=== PATIENT | male | born 1955 | race Caucasian/White ===

== ENCOUNTER 2020-08-27 14:51 | Emergency (ER) | payer BC, MEDICAID ==
--- NOTE | 2020-08-27 15:49 | EDM.PDOC ---
ED HPI GENERAL MEDICAL PROBLEM - General Chief Complaint: General Stated Complaint: CLOGGED PEG TUBE Time Seen by Provider: 08/27/20 15:27 Source of Information: Reports: Patient, Detention Records History Limitations: Reports: No Limitations - History of Present Illness INITIAL COMMENTS - FREE TEXT/NARRATIVE: Patient presents with a clogged PEG tube. It has been plugged since last evening. Supper meal last night wasn't able to be given and nothing today either. The NH tried water and coca-cola flush without success. He feels okay. No pain. No recent vomiting or diarrhea. Stools are normal and regular. - Related Data Allergies Allergy/AdvReac Type Severity Reaction Status Date / Time amlodipine besylate Allergy Swelling Verified 06/02/20 11:33 [From [facility]] banana Allergy Vomiting Verified 06/02/20 11:33 Latex, Natural Rubber Allergy Rash Verified 06/02/20 11:33 Home Meds: Home Meds Apixaban [Eliquis] 5 mg PO BID@0600,1800 05/05/18 [History] Cholecalciferol (Vitamin D3) [Vitamin D3] 1,000 units PO DAILY 05/05/18 [History] Escitalopram [Lexapro] 20 mg PO DAILY@0600 05/05/18 [History] Fenofibrate Nanocrystallized [Fenofibrate] 48 mg PO DAILY 05/05/18 [History] Metoprolol Succinate [Toprol XL 50mg] 50 mg PO DAILY 05/05/18 [History] Multivitamin [Multi-Day Vitamins] 1 each PO DAILY 05/05/18 [History] atorvaSTATin [Lipitor] 40 mg PO BEDTIME 05/05/18 [History] Polyethylene Glycol [Polyox Wsr-301] 1 tsp PO DAILY PRN 02/27/19 [History] Alendronate Sodium [Fosamax] 70 mg PO WEEKLY 03/06/19 [History] Magnesium Oxide 250 mg PO DAILY@0600 05/07/19 [History] Omeprazole 20 mg PO DAILY@0600 05/07/19 [History] Acetaminophen [Tylenol] 650 mg PO Q4H PRN tablet 05/08/19 [Rx] Albuterol [Proventil Neb Soln] 2.5 mg INH Q2H PRN neb 05/08/19 [Rx] Levothyroxine [Synthroid] 50 mcg PO BEDTIME #60 tab 05/08/19 [Rx] Cyclobenzaprine [Flexeril] 10 mg PO TID PRN 06/30/19 [History] Calcium Carb, Citrate/Vit D3 [Citracal + D ER] 2 tab PO BID 03/10/20 [History] DULoxetine [Cymbalta] 1 cap PO DAILY 03/10/20 [History] Ferrous Sulfate 1 tab PO Q2D 03/10/20 [History] Fluticasone Propion/Salmeterol [Advair Hfa 45-21 Mcg Inhaler] 2 puff INH BID 03/10/20 [History] Hydrocortisone [Hydrocortisone 1% Crm] 1 applic TOP ASDIRECTED PRN 03/10/20 [History] Losartan [Cozaar] 50 mg PO BID 03/10/20 [History] Mupirocin Oint [Bactroban Oint] 1 applic TOP TID 03/10/20 [History] Triamcinolone Acetonide [Kenalog 0.1% Crm] 0.5 gm TOP BID PRN 03/10/20 [History] guaiFENesin [Mucinex] 1 tab PO BID PRN 03/10/20 [History] valACYclovir [Valtrex] 1 tab PO TID 03/10/20 [History] Past Medical History HEENT History: Reports: None. Denies: Allergic Rhinitis, Cataract, Glaucoma, Hard of Hearing, Impaired Vision, Macular Degeneration, Otitis Media, Retinal Detachment Cardiovascular History: Reports: Afib, Arrhythmia, High Cholesterol, Hypertension. Denies: Aneurysm, Blood Clots/VTE/DVT, Bypass, CAD, Cardiomyopathy, Heart Failure, Heart Murmur, NV, Pacemaker, PTCA, PVD, Syncope Other Cardiovascular History: CT scan of the chest using calcium scoring technique negative for obstructive calcifications in March 2018 at [facility] although calcifications were noted. Recent Lexiscan on 06/24/19 was negative, however Positive Lexiscan Cardiolite evaluation on 10/14/17 showing mild coronary artery disease without ischemia. Note evidence of inferolateral cardiac ischemia by EKG in this facility on 06/30/2019, however normal subsequent heart catheterization on 07/02/2019 as below. Left atrial enlargement, mild aortic root enlargement, and diffuse mild valvular disease by echocardiogram in 2018 as below otherwise normal echocardiogram on 06/21/19 showed an ejection fraction of 55%. Atrial fibrillation diagnosed on 05/17/15 with subsequent unsuccessful permanent electrocardioversions/cardiac ablations? x2 at [facility] in the following months, last cardiac ablation on 01/25/16 previously successful to this point, however recurrent on 06/02/2020. Note current Eliquis therapy. Dyslipidemia currently under therapy; repolarization changes with previous incomplete right bundle branch block/incomplete left bundle branch, borderline carotid occlusive disease. Possible valvuloplasty by patient history. PACs, PVCs, runs, and sinus tachycardia by Holter monitor study on 07/02/17. Mild to moderate pericardial effusion by echocardiogram on 06/21/19. Respiratory History: Reports: Bronchitis, Recurrent, COPD, Intubation, Previous, Pulmonary Fibrosis, Sleep Apnea, Other (See Below). Denies: Asthma, Intubation, Difficult, PE, Pneumonia, Recurrent, Pneumothorax, TB Other Respiratory History: Patient has been compliant with his CPAP. Pulmonary restrictive lung disease, requires supplemental O2 currently at 2 L/min by nasal cannula. Gastrointestinal History: Reports: Cholelithiasis, Chronic Constipation, Fatty Liver, GERD, Hepatitis, PUD, Other (See Below). Denies: Celiac Disease, Colon Polyp, Diverticulosis, Fecal Incontinence, Gastritis, GI Bleed, Hiatal Hernia, Inflammatory Bowel Disease, Irritable Bowel Syndrome, Jaundice, Pancreatitis Other Gastrointestinal History: Cholelithiasis requiring surgery as below, postoperative LFTs elevation secondary to cholelithiasis in December 2000. Nonspecific enteropathy. Genitourinary History: Reports: BPH, Chronic Renal Insuffiency, Prostate Disorder, Renal Disease. Denies: Acute Renal Failure, Renal Calculus, STD, Urinary Incontinence, UTI, Recurrent Other Genitourinary History: Borderline grade 2 renal insufficiency Musculoskeletal History: Reports: Amputation, Arthritis, Back Pain, Chronic, Fracture, Gout, Osteoarthritis, Osteoporosis, Other (See Below). Denies: Neck Pain, Chronic, RA, SLE Other Musculoskeletal History: Right shoulder labrum abnormality by MRI of the shoulder as below. Hyperuricemia. Amputation of the distal phalanx of digits #2 and 3 of the right hand on 08/09/1994 secondary to trauma requiring surgery as below. Fracture of the fifth right toe in November 2000. Tuft fracture of digit #4 of the left hand on 09/27/1997. Fracture of the middle phalanx of digit #5 left hand in 1979. Tendinitis of the left knee and leg on 01/28/2016. Auger accident of the right forearm in about 1979 with no surgery required. Nondisplaced right hip/femoral neck fracture on 06/10/2017 diagnosed by subsequent MRI as below requiring pin placement. Plantar fasciitis. Chronic myalgia, chronic bilateral shoulder pain, and chronic right hip pain. Neurological History: Reports: Headaches, Chronic, Other (See Below). Denies: Alzheimers Disease, Cerebral Aneurysms, Concussion, CVA, Head Trauma, Migraines, MS, Neuropathy, Peripheral, Parkinson's, Seizure, TIA, Vertigo Other Neuro History: Chronic fatigue. Psychiatric History: Reports: Addiction, Anxiety, Depression. 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 Chronic insomnia. Endocrine/Metabolic History: Reports: Hypomagnesemia, Hypothyroidism, Obesity/BMI 30+, Osteopenia, Osteoporosis, Vitamin D Deficiency, Other (See Below). Denies: Diabetes, Type I, Diabetes, Type II, Diabetes Mellitus, Type 3c, Hypokalemia, Hypoparathyroidism, IDDM, Multinodular Thyroid Other Endocrine/Metabolic History: Hyponatremia. Hematologic History: Reports: Anemia, Blood Transfusion(s), Iron Deficiency. Denies: B12 Deficiency Other Hematologic History: Blood transfusion secondary to trauma in the with no transfusion reaction Immunologic History: Reports: None. Denies: AIDS, HIV, SLE Oncologic (Cancer) History: Reports: Basal Cell Carcinoma. Denies: Colon, Hodgkin's Lymphoma, Leukemia, Lymphoma, Malignant Melanoma, Non-Hodgkin's Lymphoma, Prostate, Squamous Cell Carcinoma Other Oncologic History: Excision of basal carcinoma from the scalp Dermatologic History: Reports: Other (See Below). Denies: Chronic Cellulitis, Eczema, Psoriasis, Venous Stasis Dermatitis Other Dermatologic History: Intermittent nonspecific dermatitis - Infectious Disease History Infectious Disease History: Reports: Chicken Pox, Measles, Mumps. Denies: C- Difficile, Meningitis, Mononucleosis, MRSA, Novel Coronavirus, Pertussis (Whooping Cough), Rheumatic Fever, Rubella, Scarlet Fever, Shingles, TB, VRE - Past Surgical History HEENT Surgical History: Reports: None, Oral Surgery, Other (See Below). Denies: Adenoidectomy, Cataract Surgery, Eye Surgery, Laser Surgery, LASIK, Myringotomy w Tube(s), Naso-Sinus Surgery, Tonsillectomy Cardiovascular Surgical History: Reports: Cardiac Ablation, Other (See Below). Denies: Varicose, Vascular Surgery Other Cardiovascular Surgeries/Procedures: Last cardiac ablation on 01/25/2016 at [facility] as above with previous unsuccessful ablations/cardioversions. Respiratory Surgical History: Reports: None. Denies: Thoracentesis GI Surgical History: Reports: Appendectomy, Cholecystectomy, Colonoscopy. Denies: EGD, Hernia, Abdominal, Hernia, Inguinal, Hernia Repair/Other, Polypectomy Other GI Surgeries/Procedures: Last colonoscopy was normal on 03/10/2020 with previous colonoscopy on 12/13/16. Abdominal catheter postoperative after laparoscopic cholecystectomy on 12/02/2000, appendectomy on 08/30/75. Male Surgical History: Reports: Circumcision. Denies: Renal Calculus, TURP- Transurethral Resection of Prostate, Vasectomy Endocrine Surgical History: Reports: None. Denies: Thyroid Biopsy Neurological Surgical History: Reports: None. Denies: C-Spine, Discectomy, Laminectomy, Lumbar Spine, Sacral Spine, Spinal Fusion, Thoracic Spine, Vertebroplasty Musculoskeletal Surgical History: Reports: Amputation, Arthroscopic Knee, Hip Replacement, ORIF, Shoulder Surgery. Denies: Arthroscopic Procedure, Carpal Tunnel, Ganglion Cyst, Joint Replacement Oncologic Surgical History: Reports: Other (See Below) Dermatological Surgical History: Reports: Skin Biopsy, Other (See Below) Other Dermatological Surgeries/Procedures: Excision of basal cell carcinoma as above with multiple previous skin excisions for benign disease. - Past Imaging History Past Imaging History: Reports: Angiography (Negative heart catheterization at [facility] on 07/02/2019 with ejection fraction not calculated at that time with previous heart catheterization at [facility] on 01/28/16.), Bone Scan (Bone scan including right hip on 01/02/18.), Cardiac Echo (Last echocardiogram on 06/21/19 with ejection fraction of 55%. Suboptimal echocardiogram on 10/01/17 with ejection fraction of 6065 percent and otherwise findings as above. Previous echocardiogram on 01/29/16 and additional suboptimal echocardiogram on 05/24/15 with ejection fraction not determined at that evaluation.), Carotid US (03/24/19 and 02/08/16.), CAT Scan (CT scan of the heart using calcium scoring protocol at [facility] on 03/15/[address]. Last [address] of the brain on 05/23/17 with previous evaluation on 11/04/13.), DEXA Scan (07/17/17.), Event Monitor (04/19/16.), Holter Monitor (Holter monitor study on 06/25/19, 07/02/17 and 07/12/16.), MRI (MRI of the lumbar spine on 03/16/19. MRI of the right shoulder on 12/24/17. MRI of the right hip on 06/17/17. MRI of the left knee on 09/17/16 and 12/12/15; MRI of the right knee on 12/24/16 and 10/15/16; MRI of the left shoulder in December 2008), PFT (10/22/2019 and 03/07/15.), Sleep Study (04/25/16 and 08/16/15.), Stress Testing (Last Lexiscan was normal in 06/24/19. Positive Lexiscan at [facility] on 10/14/17 with results as above and ejection fraction of 60%. Previous Lexiscan on 05/26/15 and Cardiolite stress test on 05/02/17.), Swallow Study (Negative swallow study on 06/20/17.), Ultrasound (Left upper quadrant abdominal ultrasound suboptimal on 05/01/18. Abdominal ultrasound on 11/12/00), Upper GI X-Ray/Series (Upper GI on 11/12/00), Venous Doppler (Left leg on 02/06/19. Right leg on 06/16/02) Social & Family History - Family History HEENT: Reports: Allergic Rhinitis, Other (See Below). Denies: Glaucoma, Macular Degeneration, Retinal Detachment Other HEENT Family History: Father with allergic rhinitis Cardiac: Reports: Hypertension, Other (See Below). Denies: Afib, AICD, Aneurysm, Arrhythmia, Blood Clots/VTE/DVT, CAD, Cardiomyopathy, Heart Failure, Heart Murmur, NV, Syncope Other Cardiac Family History: Hypertension in father, brother, and sister Respiratory: Reports: COPD, Other (See Below). Denies: Asthma, PE, Pneumothorax, Sleep Apnea Other Respiratory Family Hisory: COPD in father history of tobacco use. GI: Reports: Colon Polyps, PUD, Other (See Below). Denies: Celiac Disease, Cholelithiasis, Diverticulosis, GI bleed, Inflammatory Bowel Disease, Irritable Bowel Syndrome Other GI Family History: Father with history of colonic polyps and colon cancer as below, father with peptic ulcer disease : Reports: Renal Calculus, Other (See Below). Denies: Renal Disease/Insufficiency Other Family History: Brother with urolithiasis OBGYN: Reports: None. Denies: Endometriosis, Recurrent Spontaneous Musculoskeletal: Reports: Arthritis, Osteoarthritis, Osteoporosis, Other (See Below). Denies: Gout, RA, SLE Other Musculoskeletal Family History: Father with arthritis, mother with osteoporosis Neurological: Reports: None. Denies: Alzheimers Disease, CVA, Dementia, Migraines, MS, Parkinson's, Seizure, TIA Psychiatric: Reports: None. Denies: Abuse, Victim of, ADD, ADHD, Anxiety, Depression, Psych Hospitalization(s), PTSD, Suicide Attempt Endocrine/Metabolic: Reports: Diabetes, type II, IDDM, Osteopenia, Osteoporosis, Other (See Below). Denies: Diabetes, Type I, Diabetes Mellitus, Type 3c, Hypothyroidism Other Endocrine/Metabolic Family History: Sister with IDDM, osteopenia in mother Hematologic: Reports: None. Denies: Anemia, SLE Immunologic: Reports: None. Denies: AIDS, HIV, SLE Dermatologic: Reports: None Oncologic: Reports: Brain, Colon, Liver, Metastatic, Skin, Other (See Below) Other Oncologic Family History: Father with colon cancer requiring hemicolectomy in his 70s, 2 paternal aunts with unknown type of fatal cancer, paternal uncle with unknown type of fatal cancer in his 50s, paternal aunt with fatal brain cancer in their 70s, sister and brother with unknown type of skin cancer, sister with possible metastatic unknown type of cancer to the liver and kidney? - Tobacco Use Tobacco Use Status *Q: Never Tobacco User - Caffeine Use Caffeine Use: Reports: Soda Caffeine Use Comment: 1 soda per day - Recreational Drug Use Recreational Drug Use: No - Living Situation & Occupation Living situation: Reports: Single (No children), Alone Occupation: Employed ([employer] in [facility], however has not been working since October 2019 secondary to COVID-19 pandemic.) ED ROS GENERAL - Review of Systems Review Of Systems: See Below Constitutional: Denies: Fever, Chills, Malaise, Weakness HEENT: Denies: Throat Pain Respiratory: Denies: Shortness of Breath, Cough Cardiovascular: Denies: Chest Pain, Lightheadedness, Syncope GI/Abdominal: Denies: Abdominal Pain, Diarrhea, Vomiting : Denies: Dysuria, Flank Pain Musculoskeletal: Denies: Neck Pain, Shoulder Pain, Arm Pain, Back Pain Skin: Denies: Cyanosis, Jaundice, Mottled, Pallor, Diaphoresis Neurological: Denies: Confusion, Dizziness, Seizure, Syncope, Trouble Speaking, Difficulty Walking Psychiatric: Denies: Agitation, Anxiety, Confusion ED EXAM, GENERAL - Physical Exam Exam: See Below Exam Limited By: No Limitations General Appearance: Alert, WD/WN, No Apparent Distress Eye Exam: Bilateral Eye: EOMI, Normal Inspection, PERRL Ears: Normal External Exam, Hearing Grossly Normal Nose: Normal Inspection, No Blood Throat/Mouth: Normal Inspection, Normal Lips, Normal Voice, No Airway Compromise Head: Atraumatic, Normocephalic Neck: Normal Inspection, Full Range of Motion Respiratory/Chest: No Respiratory Distress, Crackles (mild in left lung base) Cardiovascular: Irregularly Irregular (chronic A Fib) GI/Abdominal: Soft, Non-Tender, No Distention, No Abnormal Bruit, Other (Gastrostomy tube appears without problems in epigastrium. No erythema.) Extremities: Normal Inspection, Normal Range of Motion Neurological: Alert, Oriented, Normal Cognition, No Motor/Sensory Deficits Psychiatric: Normal Affect, Normal Mood Skin Exam: Warm, Dry, Intact, Normal Color, No Rash Course - Vital Signs Last Recorded V/S: Last Vital Signs Temp 98.4 F 08/27/20 15:11 Pulse 90 08/27/20 15:11 Resp 22 H 08/27/20 15:11 BP 139/85 08/27/20 15:11 Pulse Ox 96 08/27/20 15:11 - Re-Assessments/Exams Free Text/Narrative Re-Assessment/Exam: 08/27/20 16:00 We tried warm water irrigation as well as positive and negative pressure with a syringe, but without success. I checked UpTo[employer] and these frequently become clogged but can also deteriorate and need replacement on an unpredictable time frame. I discussed case with Dr. Rosado IR at [facility] who advised transfer to ER there where this can be unplugged or replaced as needed. They advised private vehicle transfer if appropriate so that he will have a ride back to [place] later. He is on oxygen but the NH can accommodate this with their transfer they tell us. Patient is stable and agreeable with this plan. Departure - Departure Time of Disposition: 15:59 Disposition: DC/Tfer to Acute Hospital 02 Condition: Good Clinical Impression: PEG tube malfunction - Discharge Information Referrals: Jordana Hernandez MD [Primary Care Provider] - Sepsis Event Note (ED) - Evaluation Sepsis Screening Result: No Definite Risk - Focused Exam Vital Signs: Vital Signs Temp Pulse Resp BP Pulse Ox 08/27/20 15:11 98.4 F 90 22 H 139/85 96
[2020-08-27 16:19] VITALS: BP 162/101; PULSE 89
== END 2020-08-27 16:15 ==
LOC: KA.ED 14:51
DX: K94.23 Gastrostomy malfunction (principal); I48.91 Unspecified atrial fibrillation; E78.00 Pure hypercholesterolemia, unspecified; I12.9 Hypertensive chronic kidney disease with stage 1 through stage 4 chronic kidney disease, or unspecified chronic kidney disease; N18.9 Chronic kidney disease, unspecified; D63.1 Anemia in chronic kidney disease; J44.9 Chronic obstructive pulmonary disease, unspecified; K21.9 Gastro-esophageal reflux disease without esophagitis; E03.9 Hypothyroidism, unspecified; E66.9 Obesity, unspecified; Z88.8 Allergy status to other drugs, medicaments and biological substances; Z91.040 Latex allergy status; Z91.018 Allergy to other foods; Z79.01 Long term (current) use of anticoagulants; Z79.899 Other long term (current) drug therapy
CPT/HCPCS: 99284

== ENCOUNTER 2020-09-03 19:05 | Emergency (ER) | payer BC, MEDICAID ==
--- NOTE | 2020-09-03 19:27 | EDM.PDOC ---
ED HPI GENERAL MEDICAL PROBLEM - General Chief Complaint: Gastrointestinal Problem Stated Complaint: GI BLEED Time Seen by Provider: 09/03/20 19:27 Source of Information: Reports: Patient, Fdc Records History Limitations: Reports: Altered Mental Status, Other (Cognitive delay) - History of Present Illness INITIAL COMMENTS - FREE TEXT/NARRATIVE: Ana, 64-year-old male, sent to the emergency department via ambulance with what was determined to be an active GI bleed. This started this afternoon and complete details are difficult to obtain as he is somewhat poor cognitively and his historian aspect secondary of a significant traumatic neurologic incident. History from chart and chart review as well as nursing facility notes. Onset: Today, Sudden Duration: Hour(s): Left Sided Abdomen Pain Score (Numeric/FACES): 3 - Related Data Allergies Allergy/AdvReac Type Severity Reaction Status Date / Time amlodipine besylate Allergy Swelling Verified 09/03/20 20:05 [From [facility]] banana Allergy Vomiting Verified 09/03/20 20:05 Latex, Natural Rubber Allergy Rash Verified 09/03/20 20:05 Home Meds: Home Meds Apixaban [Eliquis] 5 mg PEGTUBE BID@0600,1800 05/05/18 [History] Alendronate Sodium [Fosamax] 70 mg PO WEEKLY 03/06/19 [History] Acetaminophen [Tylenol Extra Strength] 500 mg PEGTUBE QID 09/03/20 [History] Albuterol Sulfate 2.5 mg IH QID 09/03/20 [History] Bisacodyl [Gentle Laxative] 1 supp RECTAL ASDIRECTED PRN 09/03/20 [History] Budesonide [Pulmicort] 0.5 mg IH BID 09/03/20 [History] Calcium Carbonate [Tums] 500 mg PEGTUBE Q8HR PRN 09/03/20 [History] Gabapentin [Neurontin] 4 ml PEGTUBE TID 09/03/20 [History] LORazepam [Ativan] 0.5 mg PEGTUBE BID 09/03/20 [History] Lidocaine [Lidocaine Pain Relief] 1 each TP DAILY 09/03/20 [History] Losartan Potassium 100 mg PO DAILY 09/03/20 [History] Melatonin 3 mg PEGTUBE BEDTIME 09/03/20 [History] Metoprolol Tartrate 100 mg PEGTUBE BID 09/03/20 [History] Nystatin 1 each TOP Q12HR PRN 09/03/20 [History] Polyethylene Glycol 1000 [Polyethylene Glycol] 17 gm PEGTUBE ASDIRECTED PRN 09/03/20 [History] QUEtiapine Fumarate [Quetiapine Fumarate] 25 mg PEGTUBE BID 09/03/20 [History] Sennosides/Docusate Sodium [Senna Plus 8.6-50 mg Tablet] 1 each PEGTUBE BID 09/03/20 [History] Simethicone 80 mg PEGTUBE QID 09/03/20 [History] Temazepam [Restoril] 15 mg PO BEDTIME 09/03/20 [History] Venlafaxine HCl 75 mg PEGTUBE BID 09/03/20 [History] Vit B Cmplx 3/Fa/Vit C/Biotin [Gertrude-Cindy Rx Tablet] 1 tab PEGTUBE DAILY 09/03/20 [History] atorvaSTATin Calcium [Atorvastatin Calcium] 40 mg PEGTUBE BEDTIME 09/03/20 [History] hydrALAZINE HCl [Hydralazine HCl] 50 mg PEGTUBE Q8HR 09/03/20 [History] hydrOXYzine HCL [Hydroxyzine HCl] 50 mg PEGTUBE Q6HR PRN 09/03/20 [History] levETIRAcetam [Levetiracetam] 15 ml PEGTUBE BID 09/03/20 [History] Past Medical History HEENT History: Reports: None Cardiovascular History: Reports: Afib, Arrhythmia, High Cholesterol, Hypertension Other Cardiovascular History: CT scan of the chest using calcium scoring technique negative for obstructive calcifications in March 2018 at [facility] in [place] although calcifications were noted. Recent Lexiscan on 06/24/19 was negative, however Positive Lexiscan Cardiolite evaluation on 10/14/17 showing mild coronary artery disease without ischemia. Note evidence of inferolateral cardiac ischemia by EKG in this facility on 06/30/2019, however normal subsequent heart catheterization on 07/02/2019 as below. Left atrial enlargement, mild aortic root enlargement, and diffuse mild valvular disease by echocardiogram in 2018 as below otherwise normal echocardiogram on 06/21/19 showed an ejection fraction of 55%. Atrial fibrillation diagnosed on 05/17/15 with subsequent unsuccessful permanent electrocardioversions/cardiac ablations? x2 at [facility] in the following months, last cardiac ablation on 01/25/16 previously successful to this point, however recurrent on 06/02/2020. Note current Eliquis therapy. Dyslipidemia currently under therapy; repolarization changes with previous incomplete right bundle branch block/incomplete left bundle branch, borderline carotid occlusive disease. Possible valvuloplasty by patient history. PACs, PVCs, runs, and sinus tachycardia by Holter monitor study on 07/02/17. Mild to moderate pericardial effusion by echocardiogram on 06/21/19. Respiratory History: Reports: Bronchitis, Recurrent, COPD, Intubation, Previous, Pulmonary Fibrosis, Sleep Apnea, Other (See Below) Other Respiratory History: Patient has been compliant with his CPAP. Pulmonary restrictive lung disease, requires supplemental O2 currently at 2 L/min by nasal cannula. Gastrointestinal History: Reports: Cholelithiasis, Chronic Constipation, Fatty Liver, GERD, Hepatitis, PUD, Other (See Below) Other Gastrointestinal History: Cholelithiasis requiring surgery as below, postoperative LFTs elevation secondary to cholelithiasis in December 2000. Nonspecific enteropathy. Genitourinary History: Reports: BPH, Chronic Renal Insuffiency, Prostate Disord er, Renal Disease Other Genitourinary History: Borderline grade 2 renal insufficiency Musculoskeletal History: Reports: Amputation, Arthritis, Back Pain, Chronic, Fracture, Gout, Osteoarthritis, Osteoporosis, Other (See Below) Other Musculoskeletal History: Right shoulder labrum abnormality by MRI of the shoulder as below. Hyperuricemia. Amputation of the distal phalanx of digits #2 and 3 of the right hand on 08/09/1994 secondary to trauma requiring surgery as below. Fracture of the fifth right toe in November 2000. Tuft fracture of digit #4 of the left hand on 09/27/1997. Fracture of the middle phalanx of digit #5 left hand in 1979. Tendinitis of the left knee and leg on 01/28/2016. Auger accident of the right forearm in about 1979 with no surgery required. Nondisplaced right hip/femoral neck fracture on 06/10/2017 diagnosed by subsequent MRI as below requiring pin placement. Plantar fasciitis. Chronic myalgia, chronic bilateral shoulder pain, and chronic right hip pain. Neurological History: Reports: Headaches, Chronic, Other (See Below) (Subdural hematoma) Other Neuro History: Chronic fatigue. Psychiatric History: Reports: Addiction, Anxiety, Depression Other Psychiatric History: Possible alcohol abuse with developing alcohol encephalopathy? Chronic insomnia. Endocrine/Metabolic History: Reports: Hypomagnesemia, Hypothyroidism, Obesity/BMI 30+, Osteopenia, Osteoporosis, Vitamin D Deficiency, Other (See Below) Other Endocrine/Metabolic History: Hyponatremia. Hematologic History: Reports: Anemia, Blood Transfusion(s), Iron Deficiency Other Hematologic History: Blood transfusion secondary to trauma in the with no transfusion reaction Immunologic History: Reports: None Oncologic (Cancer) History: Reports: Basal Cell Carcinoma Other Oncologic History: Excision of basal carcinoma from the scalp Dermatologic History: Reports: Other (See Below) Other Dermatologic History: Intermittent nonspecific dermatitis - Infectious Disease History Infectious Disease History: Reports: Chicken Pox, Measles, Mumps. Denies: C- Difficile, Meningitis, Mononucleosis, MRSA, Novel Coronavirus, Pertussis (Whooping Cough), Rheumatic Fever, Rubella, Scarlet Fever, Shingles, TB, VRE - Past Surgical History Head Surgeries/Procedures: Reports: None HEENT Surgical History: Reports: None, Oral Surgery, Other (See Below) Other HEENT Surgeries/Procedures: Multiple teeth extractions Cardiovascular Surgical History: Reports: Cardiac Ablation, Other (See Below) Other Cardiovascular Surgeries/Procedures: Last cardiac ablation on 01/25/2016 at [facility] as above with previous unsuccessful ablat ions/cardioversions. Respiratory Surgical History: Reports: None Other Respiratory Surgeries/Procedures: acute bronchitis, CHRISTINE on CPAP uses BiPAP GI Surgical History: Reports: Appendectomy, Cholecystectomy, Colonoscopy Other GI Surgeries/Procedures: Last colonoscopy was normal on 03/10/2020 with previous colonoscopy on 12/13/16. Abdominal catheter postoperative after laparoscopic cholecystectomy on 12/02/2000, appendectomy on 08/30/75. Male Surgical History: Reports: Circumcision Other Male Surgeries/Procedures: Circumcision as an infant Endocrine Surgical History: Reports: None Neurological Surgical History: Reports: None Musculoskeletal Surgical History: Reports: Amputation, Arthroscopic Knee, Hip Replacement, ORIF, Shoulder Surgery Other Musculoskeletal Surgeries/Procedures:: Pin placement/ORIF of right femoral neck fracture in June 2017. Left knee arthroscopic repair 06/15/16 with previous procedure in November 1996, Amputation of digits #2 and 3 of the right hand in August 1994, arthroscopic left shoulder surgery on 12/27/08, Oncologic Surgical History: Reports: Other (See Below) Other Oncologic Surgeries/Procedures: Excision of basal cell carcinoma as above. Dermatological Surgical History: Reports: Skin Biopsy, Other (See Below) - Past Imaging History Past Imaging History: Reports: Angiography (Negative heart catheterization at [facility] on 07/02/2019 with ejection fraction not calculated at that time with previous heart catheterization at [facility] on 01/28/16.), Bone Scan (Bone scan including right hip on 01/02/18.), Cardiac Echo (Last echocardiogram on 06/21/19 with ejection fraction of 55%. Suboptimal echocardiogram on 10/01/17 with ejection fraction of 6065 percent and otherwise findings as above. Previous echocardiogram on 01/29/16 and additional suboptimal echocardiogram on 05/24/15 with ejection fraction not determined at that evaluation.), Carotid US (03/24/19 and 02/08/16.), CAT Scan (CT scan of the heart using calcium scoring protocol at [facility] on 03/15/[address]. [address] of the brain on 05/23/17 with previous evaluation on 11/04/13.), DEXA Scan (07/17/17.), Event Monitor (04/19/16.), Holter Monitor (Holter monitor study on 06/25/19, 07/02/17 and 07/12/16.), MRI (MRI of the lumbar spine on 03/16/19. MRI of the right shoulder on 12/24/17. MRI of the right hip on 06/17/17. MRI of the left knee on 09/17/16 and 12/12/15; MRI of the right knee on 12/24/16 and 10/15/16; MRI of the left shoulder in December 2008), PFT (10/22/2019 and 03/07/15.), Sleep Study (04/25/16 and 08/16/15.), Stress Testing (Last Lexiscan was normal in 06/24/19. Positive Lexiscan at [facility] on 10/14/17 with results as above and ejection fraction of 60%. Previous Lexiscan on 05/26/15 and Cardiolite stress test on 05/02/17.), Swallow Study (Negative swallow study on 06/20/17.), Ultrasound (Left upper quadrant abdominal ultrasound suboptimal on 05/01/18. Abdominal ultrasound on 11/12/00), Upper GI X-Ray/Series (Upper GI on 11/12/00), Venous Doppler (Left leg on 02/06/19. Right leg on 06/16/02) Social & Family History - Family History Family Medical History: No Pertinent Family History HEENT: Reports: Allergic Rhinitis, Other (See Below). Denies: Glaucoma, Macular Degeneration, Retinal Detachment Other HEENT Family History: Father with allergic rhinitis Cardiac: Reports: Hypertension, Other (See Below). Denies: Afib, AICD, Aneurysm, Arrhythmia, Blood Clots/VTE/DVT, CAD, Cardiomyopathy, Heart Failure, Heart Murmur, ID, Syncope Other Cardiac Family History: Hypertension in father, brother, and sister Respiratory: Reports: COPD, Other (See Below). Denies: Asthma, PE, Pneumothorax, Sleep Apnea Other Respiratory Family Hisory: COPD in father history of tobacco use. GI: Reports: Colon Polyps, PUD, Other (See Below). Denies: Celiac Disease, Ch olelithiasis, Diverticulosis, GI bleed, Inflammatory Bowel Disease, Irritable Bowel Syndrome Other GI Family History: Father with history of colonic polyps and colon cancer as below, father with peptic ulcer disease : Reports: Renal Calculus, Other (See Below). Denies: Renal Disease/Insufficiency Other Family History: Brother with urolithiasis OBGYN: Reports: None. Denies: Endometriosis, Recurrent Spontaneous Musculoskeletal: Reports: Arthritis, Osteoarthritis, Osteoporosis, Other (See Below). Denies: Gout, RA, SLE Other Musculoskeletal Family History: Father with arthritis, mother with osteoporosis Neurological: Reports: None. Denies: Alzheimers Disease, CVA, Dementia, Migraines, MS, Parkinson's, Seizure, TIA Psychiatric: Reports: None. Denies: Abuse, Victim of, ADD, ADHD, Anxiety, Depression, Psych Hospitalization(s), PTSD, Suicide Attempt Endocrine/Metabolic: Reports: Diabetes, type II, IDDM, Osteopenia, Osteoporosis, Other (See Below). Denies: Diabetes, Type I, Diabetes Mellitus, Type 3c, Hypothyroidism Other Endocrine/Metabolic Family History: Sister with IDDM, osteopenia in mother Hematologic: Reports: None. Denies: Anemia, SLE Immunologic: Reports: None. Denies: AIDS, HIV, SLE Dermatologic: Reports: None Oncologic: Reports: Brain, Colon, Liver, Metastatic, Skin, Other (See Below) Other Oncologic Family History: Father with colon cancer requiring hemicolectomy in his 70s, 2 paternal aunts with unknown type of fatal cancer, paternal uncle with unknown type of fatal cancer in his 50s, paternal aunt with fatal brain cancer in their 70s, sister and brother with unknown type of skin cancer, sister with possible metastatic unknown type of cancer to the liver and kidney? - Caffeine Use Caffeine Use: Reports: Soda Caffeine Use Comment: 1 soda per day - Living Situation & Occupation Living situation: Reports: Single (No children), Alone Occupation: Employed ([employer] [facility], however has not been working since October 2019 secondary to COVID-19 pandemic.) ED ROS GENERAL - Review of Systems Review Of Systems: Comprehensive ROS is negative, except as noted in HPI. ED EXAM, GENERAL - Physical Exam Exam: See Below Free Text/Narrative:: Bradley is alert and oriented to the fact he is in the emergency department. Very poor historical recall stating that sometime today this incident occurred, but he is not able to give details. HEENT negative discharge or deformity with symmetrical facial expression but somewhat slow in his speech. Mild pallor is noted, no cyanosis. Neck is soft supple very leonardo limited examination with no abnormalities found, I do not appreciate bruit. Thorax is diminished throughout no wheezes nor crackles. Abdomen is rotund soft feeding tube in place bowel sounds are present.Intermittent discomfort in her right upper quadrant with no palpable mass. There is odor of GI bleed. Compression stockings in place with +2 edema. Right hand has the distal phalange of digits 2 and 3 amputated Rectal exam performed for obtaining for Hemoccult with no specific tenderness.Mild laxity to the anal sphincter. Stool was dark brown but not black appearing like his bowel movement he experienced prior to the transfer. #1 Interpretation EKG Date: 09/03/20 Time: 20:15 Rhythm: A-Fib Rate (Beats/Min): 101 Newton: Normal P-Wave: Absent QRS: Wide ST-T: Normal QT: Normal Comparison: No Change (compare to 06-02-2020) Course - Vital Signs Last Recorded V/S: Last Vital Signs Temp 97.6 F 09/03/20 21:43 Pulse 90 09/03/20 22:43 Resp 18 09/03/20 22:43 BP 148/92 H 09/03/20 22:43 Pulse Ox 95 09/03/20 22:43 - Orders/Labs/Meds Orders: Active Orders 24 hr Category Date Time Status CULTURE URINE [RM] Urgent Lab 09/03/20 20:00 Results EKG 12 Lead [EK] Urgent Ther 09/03/20 19:38 Ordered Labs: Laboratory Tests 09/03/20 09/03/20 09/03/20 Range/Units 19:55 19:55 19:55 WBC 9.27 (5.00-10.00) 10^3/uL RBC 3.03 L (4.50-6.00) 10^6/uL Hgb 8.8 L (13.0-17.0) g/dL Hct 29.8 L (40.0-52.0) % MCV 98.3 H (82.0-92.0) fL MCH 29.0 (27.0-31.0) pg MCHC 29.5 L (32.0-36.0) g/dL RDW 15.3 H (11.5-14.5) % Plt Count 271 (150-400) 10^3/uL MPV 9.7 (7.4-10.4) fL Immature Gran % (Auto) 0.1 (0.0-5.0) % Neut % (Auto) 75.0 H (50.0-70.0) % Lymph % (Auto) 10.1 L (20.0-40.0) % Creek % (Auto) 11.9 H (2.0-8.0) % Eos % (Auto) 2.3 (1.0-3.0) % Baso % (Auto) 0.6 (0.0-1.0) % Neut # (Auto) 6.95 (2.50-7.00) 10^3/uL Lymph # (Auto) 0.94 L (1.00-4.00) 10^3/uL Creek # (Auto) 1.10 H (0.10-0.80) 10^3/uL Eos # (Auto) 0.21 (0.10-0.30) 10^3/uL Baso # (Auto) 0.06 (0.00-0.10) 10^3/uL Immature Gran # (Auto) 0.01 (0.00-0.50) 10^3/uL APTT 28.3 (22.8-31.4) SEC Sodium 144 (136-145) mmol/L Potassium 4.0 (3.5-5.1) mmol/L Chloride 97 L (98-107) mmol/L Carbon Dioxide 43.2 H (21.0-32.0) mmol/L Anion Gap 7.8 (5-15) mmol/L BUN 10 (7-18) mg/dL Creatinine 0.64 (0.51-1.17) mg/dL Est Cr Clr Drug Dosing 203.47 mL/min Estimated GFR (MDRD) > 60 mL/min Glucose 94 (70-140) mg/dL Calcium 9.6 (8.7-10.3) mg/dL Total Bilirubin 0.3 (0.2-1.0) mg/dL AST 16 (15-37) U/L ALT 17 (14-63) U/L Alkaline Phosphatase 149 H (46-116) U/L Creatine Kinase 28 (26-276) U/L CK-MB (CK-2) 1.50 (0.00-3.60) ng/mL Troponin I < 0.017 (0.000-0.056) ng/mL Total Protein 7.4 (6.4-8.2) g/dL Albumin 2.81 L (3.40-5.00) g/dL Amylase (25-125) U/L Lipase (73-393) U/L Specimen Type Urine Color (YELLOW) Urine Appearance (CLEAR) Urine pH (5.0-9.0) Ur Specific Melvin (1.005-1.030) Urine Protein (NEGATIVE) mg/dL Urine Glucose (UA) (NEGATIVE) mg/dL Urine Ketones (NEGATIVE) mg/dL Urine Occult Blood (NEGATIVE) Urine Nitrite (NEGATIVE) Urine Bilirubin (NEGATIVE) Urine Urobilinogen (0.2-1.0) E.U./dL Ur Leukocyte Esterase (NEGATIVE) Urine RBC (0-5) /HPF Urine WBC (0-5) /HPF Urine Bacteria (NONE TO FEW) /HPF 09/03/20 09/03/20 Range/Units 20:00 20:55 WBC (5.00-10.00) 10^3/uL RBC (4.50-6.00) 10^6/uL Hgb (13.0-17.0) g/dL Hct (40.0-52.0) % MCV (82.0-92.0) fL MCH (27.0-31.0) pg MCHC (32.0-36.0) g/dL RDW (11.5-14.5) % Plt Count (150-400) 10^3/uL MPV (7.4-10.4) fL Immature Gran % (Auto) (0.0-5.0) % Neut % (Auto) (50.0-70.0) % Lymph % (Auto) (20.0-40.0) % Creek % (Auto) (2.0-8.0) % Eos % (Auto) (1.0-3.0) % Baso % (Auto) (0.0-1.0) % Neut # (Auto) (2.50-7.00) 10^3/uL Lymph # (Auto) (1.00-4.00) 10^3/uL Creek # (Auto) (0.10-0.80) 10^3/uL Eos # (Auto) (0.10-0.30) 10^3/uL Baso # (Auto) (0.00-0.10) 10^3/uL Immature Gran # (Auto) (0.00-0.50) 10^3/uL APTT (22.8-31.4) SEC Sodium (136-145) mmol/L Potassium (3.5-5.1) mmol/L Chloride (98-107) mmol/L Carbon Dioxide (21.0-32.0) mmol/L Anion Gap (5-15) mmol/L BUN (7-18) mg/dL Creatinine (0.51-1.17) mg/dL Est Cr Clr Drug Dosing mL/min Estimated GFR (MDRD) mL/min Glucose (70-140) mg/dL Calcium (8.7-10.3) mg/dL Total Bilirubin (0.2-1.0) mg/dL AST (15-37) U/L ALT (14-63) U/L Alkaline Phosphatase (46-116) U/L Creatine Kinase (26-276) U/L CK-MB (CK-2) (0.00-3.60) ng/mL Troponin I (0.000-0.056) ng/mL Total Protein (6.4-8.2) g/dL Albumin (3.40-5.00) g/dL Amylase 30 (25-125) U/L Lipase 75 (73-393) U/L Specimen Type Urinvoid Urine Color Yellow (YELLOW) Urine Appearance Clear (CLEAR) Urine pH 7.5 (5.0-9.0) Ur Specific Melvin 1.015 (1.005-1.030) Urine Protein 100 H (NEGATIVE) mg/dL Urine Glucose (UA) Negative (NEGATIVE) mg/dL Urine Ketones Negative (NEGATIVE) mg/dL Urine Occult Blood Moderate H (NEGATIVE) Urine Nitrite Negative (NEGATIVE) Urine Bilirubin Negative (NEGATIVE) Urine Urobilinogen 0.2 (0.2-1.0) E.U./dL Ur Leukocyte Esterase Negative (NEGATIVE) Urine RBC 20-30 H (0-5) /HPF Urine WBC 0-5 (0-5) /HPF Urine Bacteria Few (NONE TO FEW) /HPF Meds: Medications Discontinued Medications Generic Name Dose Route Start Last Admin Trade Name Freq PRN Reason Stop Dose Admin Sodium Chloride 50 mls @ 200 mls/min 09/03/20 21:15 09/03/20 21:39 Normal Saline IV 200 mls/min ASDIRECTED KATIE Administration Iopamidol 100 ml 09/03/20 21:10 09/03/20 21:39 Iopamidol 755 Mg/Ml 100 Ml Bottle IV 09/03/20 21:11 100 ml ONETIME ONE Administration Lorazepam 1 mg 09/03/20 23:06 09/03/20 23:29 Lorazepam 2 Mg/Ml Sdv IVPUSH 09/03/20 23:07 1 mg ONETIME ONE Administration Metoprolol Tartrate 100 mg 09/03/20 21:55 09/03/20 22:01 Metoprolol Tartrate 50 Mg Tab GTUBE 09/03/20 21:56 100 mg ONETIME ONE Administration - Re-Assessments/Exams Free Text/Narrative Re-Assessment/Exam: 09/03/20 21:49 Noted that Eliquis and his tube feeding were held this evening secondary of his dark stool and his abdominal discomfort. Free Text/Narrative Re-Assessment/Exam: 09/03/20 22:52 Several communications with Mr. Ryan Thomas nurse practitioner [facility] over the status agreeing that we have no surgical or GI capabilities here we will need to transfer. 1 call transfer initiated at [phone] with him being extremely busy returned phone call with accepting physician Dr. Beckford at [phone]. Departure - Departure Time of Disposition: 23:09 Disposition: DC/Tfer to [facility] Condition: Fair Clinical Impression: Pleural effusion, Occult blood positive stool Abdominal pain Qualifiers: Abdominal location: right upper quadrant Qualified Code(s): R10.11 - Right upper quadrant pain CHF (congestive heart failure) Qualifiers: Qualified Code(s): I50.9 - Heart failure, unspecified - Discharge Information *PRESCRIPTION DRUG MONITORING PROGRAM REVIEWED*: Not Applicable *COPY OF PRESCRIPTION DRUG MONITORING REPORT IN PATIENT NGUYEN: Not Applicable Referrals: Jordana Hernandez MD [Primary Care Provider] - Forms: ED Department Discharge Additional Instructions: Dr Beckford Accepting at [place], [place]. ED Communication - ED Communication Date/Time Date: 09/03/20 Time Called: 20:05 - Discussed Case With (1) Discussed Case With (1): Other Provider Person/s Notified (1): ryan thomas - Discussed Case With (2) Discussed Case With (2): Admitting Provider Person/s Notified (3): Dr Beckford Douglas - Problem List & Annotations (1) Abdominal pain SNOMED Code(s): 08822613 Code(s): R10.9 - UNSPECIFIED ABDOMINAL PAIN Status: Acute Priority: High Qualifiers: Abdominal location: right upper quadrant Qualified Code(s): R10.11 - Right upper quadrant pain (2) Occult blood positive stool SNOMED Code(s): 12463462 Code(s): R19.5 - OTHER FECAL ABNORMALITIES Status: Acute Priority: High (3) CHF (congestive heart failure) SNOMED Code(s): 19421521 Code(s): I50.9 - HEART FAILURE, UNSPECIFIED Status: Chronic Priority: Med ium Onset Date: 05/23/15 (4) Anemia SNOMED Code(s): 316208270 Code(s): D64.9 - ANEMIA, UNSPECIFIED Status: Chronic Priority: Medium Onset Date: 04/04/17 Annotation/Comment:: Known history of iron deficiency anemia Qualifiers: Anemia type: iron deficiency Iron deficiency anemia type: unspecified iron deficiency Qualified Code(s): D50.9 - Iron deficiency anemia, unspecified (5) Atrial fibrillation SNOMED Code(s): 39112461 Code(s): I48.91 - UNSPECIFIED ATRIAL FIBRILLATION Status: Chronic Priority: Medium Annotation/Comment:: Mildly subtherapeutic INR with patient denying any education noncompliance. Note current intermittent mild bradycardia likely secondary to his Toprol XL therapy with no additional beta blockers given during his ER care. Two previous unsuccessful attempts of electrical cardioversion with patient having a subsequent successful cardiac ablation as above. Qualifiers: Atrial fibrillation type: longstanding persistent Qualified Code(s): I48.11 - Longstanding persistent atrial fibrillation (6) Pleural effusion SNOMED Code(s): 25523113 Code(s): J90 - PLEURAL EFFUSION, NOT ELSEWHERE CLASSIFIED Status: Acute Priority: Medium - Problem List Review Problem List Initiated/Reviewed/Updated: Yes - My Orders Last 24 Hours: My Active Orders 09/03/20 19:38 EKG 12 Lead [EK] Urgent 09/03/20 20:00 CULTURE URINE [RM] Urgent - Assessment/Plan Last 24 Hours: My Active Orders 09/03/20 19:38 EKG 12 Lead [EK] Urgent 09/03/20 20:00 CULTURE URINE [RM] Urgent Plan: Dr Beckford Accepting at [place], [place].
[2020-09-03 20:32] LABS: ANION GAP 7.8 mmol/L (5-15); CHLORIDE,CL 97 mmol/L (98-107); SODIUM,NA 144 mmol/L (136-145)
[2020-09-03] MEDS ORDERED: Iopamidol 755 Mg/ML 100 ML Bottle IV ONE (21:10)
[2020-09-03] MEDS ORDERED: Sodium Chloride 0.9% 50 ML IV SCH (21:15)
[2020-09-03] MEDS ORDERED: Metoprolol Tartrate 50 MG Tab GTUBE ONE (21:55)
[2020-09-03 22:48] VITALS: BP 148/92; PULSE 90
[2020-09-03] MEDS ORDERED: LORazepam 2 MG/ML SDV IVPUSH ONE (23:06)
--- NOTE | 2020-09-04 10:59 | CT ---
[id number] CT/CT Abdomen Pelvis W IV EXAM: CT Abdomen Pelvis W IV CLINICAL DATA: ABD PAIN COMPARISON STUDY: None. FINDINGS: Small right pleural effusion and atelectasis. Scarring in both lung bases as well. Possible trace left effusion and minimal atelectasis. Cholecystectomy clips in the gallbladder fossa. PEG tube has been placed. Small amount of stranding and/or edema in the presacral space of the pelvis. No drainable fluid collection. Adjacent is rectal mucosa is normal. Sigmoid segment of the colon is redundant but otherwise unremarkable. Remainder of the colon is also unremarkable. No small bowel obstruction or inflammation. Appendix is not visualized. Correlate for prior appendectomy. No lymphadenopathy in the abdomen or pelvis. Chronic right-sided rib fractures, some of which are status post ORIF with hardware placement. IMPRESSION: Small right-sided pleural effusion and atelectasis, nonspecific in etiology. Chronic right-sided rib fractures, some which are status post ORIF with hardware placement. No acute findings in the abdomen or pelvis. Other findings are described above. Tay Lopez MD 09/04/20 1057 Thank you for allowing us to participate in the care of your patient.
--- NOTE | 2020-09-04 11:17 | CR ---
[id number] RAD/RAD Chest Portable EXAM: RAD Chest Portable INDICATION: ABD PAIN COMPARISON: None. DISCUSSION: Cardiomegaly and central vascular congestion. Central predominant parenchymal opacification. Lower lobe predominant interlobular septal thickening. Combination of findings are most consistent with acute cardiogenic fluid retention as seen with congestive heart failure exacerbation. Correlate for signs of infection to exclude superimposed pneumonia. Chronic right-sided rib fractures, some of which are status post ORIF with hardware placement. IMPRESSION: As above. Tay Lopez MD 09/04/20 1116 Thank you for allowing us to participate in the care of your patient.
== END 2020-09-03 23:38 ==
LOC: KA.ED 19:05
DX: I13.0 Hypertensive heart and chronic kidney disease with heart failure and stage 1 through stage 4 chronic kidney disease, or unspecified chronic kidney disease (principal); I50.9 Heart failure, unspecified; N18.9 Chronic kidney disease, unspecified; R10.11 Right upper quadrant pain; J90 Pleural effusion, not elsewhere classified; R19.5 Other fecal abnormalities; I48.91 Unspecified atrial fibrillation; E78.00 Pure hypercholesterolemia, unspecified; J44.9 Chronic obstructive pulmonary disease, unspecified; E03.9 Hypothyroidism, unspecified; E66.9 Obesity, unspecified; Z68.1 Body mass index [BMI] 19.9 or less, adult; Z88.8 Allergy status to other drugs, medicaments and biological substances; Z91.040 Latex allergy status; Z91.018 Allergy to other foods; Z79.01 Long term (current) use of anticoagulants; Z79.899 Other long term (current) drug therapy; Z99.81 Dependence on supplemental oxygen
CPT/HCPCS: 36415; 71045; 74177; 80053; 81001; 82150; 82272; 82550; 82553; 83690; 84484; 85025; 85730; 87086; 93005; 96374; 99284; 99285-25; A9270-GY; J2060; Q9967